=== PATIENT | male | born 1970 | race Caucasian/White ===

== ENCOUNTER 2018-11-08 11:35 | Observation (INO) | payer BC, OTHER ==
[2018-11-08 12:15] LABS: Absolute Lymphocytes (CBC) 3.4 K/uL (0.7-4.9); Absolute Monocytes 1.2 K/uL (0.1-1.3); Absolute Neutrophil 6.6 K/uL (1.8-8.0); Eosinophils % 1.7 % (0-4.4); Hematocrit 52.2 % (39.6-49.0); Lymphocytes % 29.6 % (15.3-44.8); MPV 8.7 fL (7.6-11.3); Monocytes % 10.3 % (3.3-12.3); RBC Red Blood Cell Count 5.78 M/uL (4.33-5.43)
[2018-11-08 12:18] LABS: Protime INR 0.94
[2018-11-08] MEDS ORDERED: ASPIRIN 81 MG CHEWABLE TABLET ONE (12:46)
[2018-11-08 12:50] LABS: ALT/SGPT 56 U/L (12-78); AST/SGOT 27 U/L (15-37); Albumin 4.1 g/dL (3.4-5.0); Alkaline Phosphatase 60 U/L (45-117); BUN Blood Urea Nitrogen 15 mg/dL (7-18); Bicarbonate 26 mmol/L (21-32); Bilirubin Direct 0.1 mg/dL (0-0.2); Bilirubin Total 0.4 mg/dL (0.2-1.0); Glucose Level 94 mg/dL (74-106); Magnesium 2.1 mg/dL (1.8-2.4); NT PRO-BNP 16 pg/mL (<125); Potassium 3.9 mmol/L (3.5-5.1); Protein, Total 7.5 g/dL (6.4-8.2); Sodium Level 142 mmol/L (136-145); Troponin (Emerg Dept Use Only) < 0.02 ng/mL (0.0-0.045)
--- NOTE | 2018-11-08 12:56 | RAD REPORT ---
EXAM DESCRIPTION: RAD - Chest Single View - 11/08/2018 12:50 pm CLINICAL HISTORY: CHEST PAIN Chest pain. COMPARISON: No comparisons FINDINGS: Portable technique limits examination quality. The lungs are grossly clear. The heart is normal in size. No displaced fractures. IMPRESSION: No acute intrathoracic process suspected.
[2018-11-08] MEDS ORDERED: NITROGLYCERIN 0.4 MG/TAB SL ONE (13:22)
--- NOTE | 2018-11-08 14:20 | EDPHYS ---
Physician Documentation [facility] Name: Kenn Willis Age: 48 yrs Sex: Male : 1970 Arrival Date: 11/08/2018 Time: 11:38 Bed 3 Private MD: ED Physician Anastacio Frank HPI: 11/08 12:06 This 48 yrs old Male presents to ER via Ambulatory with complaints of Chest jmm Pain. 12:06 The patient or guardian reports chest pain that is located primarily in the substernal m area. Onset: gradually, 4 day(s) ago. The pain radiates to the left arm. Associated signs and symptoms: Pertinent negatives: shortness of breath, fever. The chest pain is described as aching, a pressure. Duration: The patient or guardian reports multiple episodes, that are intermittent. This is a 48 year old male with a history of htn, hlp that presents to the ED with complaints of left sided chest pressure beginning 4 days ago which were intermittent. Patient states the pain has been constant and describes as pressure since yesterday with left arm involvement beginning today. Patient smokes cigars daily, denies recreational drug use. . 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 - Social history:: Smoking status: Patient/guardian denies using tobacco. - Ebola Screening: : Patient negative for fever greater than or equal to 101.5 degrees Fahrenheit, and additional compatible Ebola Virus Disease symptoms Patient denies exposure to infectious person Patient denies travel to an Ebola-affected area in the 21 days before illness onset No symptoms or risks identified at this time. ROS: 12:06 Constitutional: Negative for fever, chills, and weight loss. jmm 12:06 Skin: Negative for injury, rash, and discoloration, Neuro: Negative for headache, weakness, numbness, tingling, and seizure. 12:06 Cardiovascular: Positive for chest pain. 12:06 Respiratory: Negative for 12:06 MS/extremity: Positive for pain. 12:06 All other systems are negative. Exam: 12:06 Constitutional: This is a well developed, well nourished patient who is awake, alert, jmm and in no acute distress. Head/Face: atraumatic. Eyes: EOMI, no conjunctival erythema appreciated Neck: Trachea midline, Supple Chest/axilla: Normal chest wall appearance and motion. Cardiovascular: Regular rate and rhythm. No edema appreciated Respiratory: Normal respirations, no respiratory distress appreciated Abdomen/GI: Non distended, soft Back: Normal ROM Skin: General appearance color normal MS/ Extremity: Moves all extremities, no obvious deformities appreciated, no edema noted to the lower extremities Neuro: Awake and alert, normal gait Psych: Behavior is normal, Mood is normal, Patient is cooperative and pleasant 12:06 Cardiovascular: Rate: normal, Rhythm: regular, Pulses: no pulse deficits are appreciated. Vital Signs: 11:44 BP 157 / 110; Pulse 85; Resp 18; Temp 98.4; Pulse Ox 95% on R/A; Weight 106.59 kg (R); aj1 Height 6 ft. 0 in. (182.88 cm) (R); Pain 8/10; 12:30 BP 142 / 77; Pulse 86 MON; Resp 17; Pulse Ox 98% on R/A; sg 13:15 BP 129 / 100; Pulse 66; Resp 17; Pulse Ox 98% on R/A; sg 13:32 BP 125 / 99; Pulse 69; Resp 16; Pulse Ox 97% on R/A; sg 11:44 Body Mass Index 31.87 (106.59 kg, 182.88 cm) aj1 MDM: 11:54 Patient medically screened. [facility] 12:11 The patient was given aspirin in the Emergency Department. Data reviewed: vital signs, [facility] nurses notes. 14:19 Test interpretation: by ED physician or midlevel provider: ECG. Counseling: I had a [facility] detailed discussion with the patient and/or guardian regarding: the historical points, exam findings, and any diagnostic results supporting the discharge/admit diagnosis, lab results, radiology results, the need for further work-up and treatment in the hospital. ED course: I discussed the patient with Dr. Chinchilla whom accepted admission. . 11/08 12:02 Order name: Basic Metabolic Panel; Complete Time: 12:57 [facility] 11/08 12:02 Order name: CBC with Diff; Complete Time: 12:45 [facility] 11/08 12:02 Order name: LFT's; Complete Time: 12:57 [facility] 11/08 12:02 Order name: Magnesium; Complete Time: 12:57 [facility] 11/08 12:02 Order name: NT PRO-BNP; Complete Time: 12:57 [facility] 11/08 12:02 Order name: PT-INR; Complete Time: 12:45 [facility] 11/08 12:02 Order name: Troponin (emerg Dept Use Only); Complete Time: 12:57 [facility] 11/08 12:02 Order name: XRAY Chest (1 view); Complete Time: 12:59 [facility] 11/08 12:02 Order name: EKG; Complete Time: 12:03 [facility] 11/08 12:02 Order name: Cardiac monitoring; Complete Time: 12:04 [facility] 11/08 12:02 Order name: EKG - Nurse/Tech; Complete Time: 12:30 [facility] 11/08 12:02 Order name: IV Saline Lock; Complete Time: 12:04 [facility] 11/08 12:02 Order name: Labs collected and sent; Complete Time: 12:04 [facility] 11/08 12:02 Order name: O2 Per Protocol; Complete Time: 12:04 [facility] 11/08 12:02 Order name: O2 Sat Monitoring; Complete Time: 12:04 [facility] Administered Medications: 12:20 Drug: Aspirin Chewable Tablet 324 mg Route: PO; sg 13:15 Drug: Nitroglycerin 0.4 mg Route: Sublingual; sg Disposition: 11/08/18 14:20 Hospitalization ordered by Zehra Chinchilla for Observation. Preliminary diagnosis is Chest pain, unspecified. - Bed requested for Telemetry/MedSurg (observation). - Status is Observation. sg - Condition is Stable. - Problem is new. - Symptoms are unchanged. UTI on Admission? No Addendum: 11/11/2018 07:09 Co-signature as Attending Physician, Anastacio Frank MD I agree with the assessment and k dr plan of care. Signatures: Dispatcher [employer] EDMS Kamila Redd RN RN aj1 Woody, Diana, RN RN dw Gay, Steven, RN RN sg Rittger, Kevin, MD MD kdr Mickail, Joel, PA PA [facility] Corrections: (The following items were deleted from the chart) 11/08 16:50 14:20 Hospitalization Ordered by Zehra Chinchilla MD for Observation. Preliminary diagnosis dw is Chest pain, unspecified. Bed requested for Telemetry/MedSurg (observation). Status is Observation. Condition is Stable. Problem is new. Symptoms are unchanged. UTI on Admission? No. jmm 17:27 16:50 11/08/2018 14:20 Hospitalization Ordered by Zehra Chinchilla MD for Observation. sg Preliminary diagnosis is Chest pain, unspecified. Bed requested for Telemetry/MedSurg (observation). Status is Observation. Condition is Stable. Problem is new. Symptoms are unchanged. UTI on Admission? No. dw
--- NOTE | 2018-11-08 14:20 | ER ---
Nurse's Notes [facility] Name: Kenn Willis Age: 48 yrs Sex: Male : 1970 Arrival Date: 11/08/2018 Time: 11:38 Bed 3 Private MD: Diagnosis: Chest pain, unspecified Presentation: 11/08 11:42 Presenting complaint: Patient states: "I ran out of my blood pressure medicine 2 weeks aj1 ago. I got it refilled this weekend, but this week I've been having stabbing pains in my chest and an aching and today my left arm started hurting really bad." Denies SOB. Transition of care: patient was not received from another setting of care. Onset of symptoms was October 2018. Risk Assessment: Do you want to hurt yourself or someone else? Patient reports no desire to harm self or others. Initial Sepsis Screen: Does the patient meet any 2 criteria? No. Patient's initial sepsis screen is negative. Does the patient have a suspected source of infection? No. Patient's initial sepsis screen is negative. Care prior to arrival: None. 11:42 Method Of Arrival: Ambulatory aj1 11:42 Acuity: IVAN 3 aj1 Triage Assessment: 11:44 General: Appears in no apparent distress. uncomfortable, Behavior is calm, cooperative, aj1 appropriate for age. Pain: Complains of pain in anterior aspect of left upper chest Pain radiates to left arm Pain currently is 8 out of 10 on a pain scale. Neuro: Level of Consciousness is awake, alert, obeys commands. Cardiovascular: Patient's skin is warm and dry. Respiratory: Airway is patent Respiratory effort is even, unlabored, Respiratory pattern is regular, symmetrical. 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 - Social history:: Smoking status: Patient/guardian denies using tobacco. - Ebola Screening: : Patient negative for fever greater than or equal to 101.5 degrees Fahrenheit, and additional compatible Ebola Virus Disease symptoms Patient denies exposure to infectious person Patient denies travel to an Ebola-affected area in the 21 days before illness onset No symptoms or risks identified at this time. Screenin:00 Abuse screen: Denies threats or abuse. Denies injuries from another. Nutritional sg screening: No deficits noted. Tuberculosis screening: No symptoms or risk factors identified. Never had TB. Fall Risk None identified. Assessment: 12:10 General: Appears in no apparent distress. comfortable, well groomed, well developed, sg well nourished, Behavior is calm, cooperative, appropriate for age. Pain: Complains of pain in left arm and anterior aspect of left upper chest Quality of pain is described as aching. Neuro: Level of Consciousness is awake, alert, obeys commands, Oriented to person, place, time, situation, Straw Hat Brusher are equal bilaterally Speech is normal, Facial symmetry appears normal. Cardiovascular: Capillary refill is brisk in bilateral fingers Patient's skin is warm and dry. Chest pain is described as vague, quality is sharp, squeezing. Respiratory: Airway is patent Respiratory effort is even, unlabored, Respiratory pattern is regular, symmetrical. GI: No signs and/or symptoms were reported involving the gastrointestinal system. : No signs and/or symptoms were reported regarding the genitourinary system. EENT: No signs and/or symptoms were reported regarding the EENT system. Derm: Skin is pink, warm \\T\\ dry. Musculoskeletal: Circulation, motion, and sensation intact. Range of motion: intact in all extremities. 12:47 Reassessment: Patient appears in no apparent distress at this time. Patient and/or sg family updated on plan of care and expected duration. Pain level reassessed. Patient is alert, oriented x 3, equal unlabored respirations, skin warm/dry/pink. 13:30 Reassessment: Patient appears in no apparent distress at this time. Patient and/or sg family updated on plan of care and expected duration. Pain level reassessed. Patient is alert, oriented x 3, equal unlabored respirations, skin warm/dry/pink. Patient states feeling better. 14:30 Reassessment: Patient appears in no apparent distress at this time. Patient and/or sg family updated on plan of care and expected duration. Pain level reassessed. Patient is alert, oriented x 3, equal unlabored respirations, skin warm/dry/pink. pt reports Nitro 0.4 SL has decreased arm pain at this time. 15:30 Reassessment: Patient appears in no apparent distress at this time. Patient and/or sg family updated on plan of care and expected duration. Pain level reassessed. Patient is alert, oriented x 3, equal unlabored respirations, skin warm/dry/pink. 16:25 Reassessment: Patient appears in no apparent distress at this time. Patient and/or sg family updated on plan of care and expected duration. Pain level reassessed. Patient is alert, oriented x 3, equal unlabored respirations, skin warm/dry/pink. awaiting admission to the floor at this time, pt and pt fiance stated understanding, will continue to monitor. 17:20 Reassessment: pt and pt family at bedside, pt tolerating PO food from [employer], denies sg N/V/D/Fever. Vital Signs: 11:44 BP 157 / 110; Pulse 85; Resp 18; Temp 98.4; Pulse Ox 95% on R/A; Weight 106.59 kg (R); aj1 Height 6 ft. 0 in. (182.88 cm) (R); Pain 8/10; 12:30 BP 142 / 77; Pulse 86 MON; Resp 17; Pulse Ox 98% on R/A; sg 13:15 BP 129 / 100; Pulse 66; Resp 17; Pulse Ox 98% on R/A; sg 13:32 BP 125 / 99; Pulse 69; Resp 16; Pulse Ox 97% on R/A; sg 11:44 Body Mass Index 31.87 (106.59 kg, 182.88 cm) aj1 ED Course: 11:38 Patient arrived in ED. rg4 11:44 Triage completed. aj1 11:44 Arm band placed on Patient placed in an exam room. aj1 11:47 Jalen Garza PA is PHCP. [facility] 11:47 Anastacio Frank MD is Attending Physician. jm 11:48 Gary Walker, RN is Primary Nurse. sg 12:00 Initial lab(s) drawn, by ky, sent to lab. Inserted saline lock: 20 gauge in right sg wrist, using aseptic technique. Blood collected. Patient maintains SpO2 saturation greater than 95% on room air. 12:31 EKG done, by electronics engineering technologist. reviewed by Anastacio Frank MD. dt2 12:31 EKG done, by electronics engineering technologist. reviewed by Jalen KOTHARI. dt2 12:51 XRAY Chest (1 view) In Process Unspecified. EDMS 13:40 No provider procedures requiring assistance completed. Patient admitted, IV remains in sg place. intact, bleeding controlled, No redness/swelling at site. Pressure dressing applied. 13:50 Patient has correct armband on for positive identification. Bed in low position. Call sg light in reach. Side rails up X2. monitoring tech on. Pulse ox on. NIBP on. Warm blanket given. Head of bed elevated. 14:19 Zehra Chinchilla MD is Hospitalizing Provider. m Administered Medications: 12:20 Drug: Aspirin Chewable Tablet 324 mg Route: PO; sg 13:15 Drug: Nitroglycerin 0.4 mg Route: Sublingual; sg Outcome: 14:20 Decision to Hospitalize by Provider. senthil 17:19 Admitted to Tele accompanied by tech, via stretcher, room 404, with chart, Report sg called to Maritza DOOLEY 17:19 Condition: stable 17:19 Instructed on the need for admit, safety practices, Demonstrated understanding of instructions. 17:27 Patient left the ED. Signatures: Dispatcher [employer] EDMS Kamila Redd, RN RN aj1 Gary Walker RN RN sg Jalen Garza, SANIYA PA Raquel Griffith rg4 Carline Mckoy dt2
--- NOTE | 2018-11-08 16:14 | EKG ---
Test Date: 2018-11-08 Test Time: 12:13:37 Caramel Maker: ISA MEASUREMENT RESULTS: Intervals: Rate: 72 IL: 156 QRSD: 94 QT: 372 QTc: 407 [place]: P: 44 IL: 156 QRS: 86 T: 24 INTERPRETIVE STATEMENTS: Normal sinus rhythm Normal ECG Compared to ECG 04/05/2007 09:00:22 No significant changes Electronically Signed On 11-08-18 16:13:53 CIGARETTE VENDOR by Trino Jacobs
--- NOTE | 2018-11-08 18:18 | P.HP ---
Certification for Inpatient Patient admitted to: Observation With expected LOS: <2 Midnights Practitioner: I am a practitioner with admitting privileges, knowledge of patient current condition, hospital course, and medical plan of care. Services: Services provided to patient in accordance with Admission requirements found in Title 42 Section 412.3 of the Code of Federal Regulations Patient History Date of Service: 11/08/18 Primary Care Provider: Dr. Tolbert Reason for admission: Chest pain History of Present Illness: This is a 48-year-old male with history of hypertension, hyperlipidemia, psoriasis and current cigar smoker admitted for chest pain. Per patient, he has been having intermittent substernal chest pain for the past month that has been progressively worsening. Now for the past day he has been having radiation to the left arm, causing a murillo/known left arm. He is also describing 8-9/10 chest/arm pain that started on the morning of admission, the started suddenly when he was sitting and describes it as sharp. States that the pain is worse with sitting still and better with movement. Of note, patient has not taken his blood pressure medications for 2 weeks because his primary care physician was in the process of moving and could not get a hold of his Dr. He recently restarted his blood pressure medication a few days ago. He then came to the emergency room. In the emergency room, initially blood pressure was elevated. he received aspirin and nitro. At the time of my exam, patient was alert oriented x3, hemodynamically stable in no acute distress. Per patient, arm pain had resolved. He was admitted for further evaluation of his chest pain Allergies Penicillins Adverse Reaction (Verified 11/08/18 15:12) Itching/Hives/Rash Home Medications: Valsartan/Hydrochlorothiazide [Valsartan-Hctz 160-12.5 mg Tab] 1 tab PO DAILY Review of Systems 10-point ROS is otherwise unremarkable Physical Examination - Vital Signs Temperature: 98.4 F Blood Pressure: 125/99 Pulse: 69 Respirations: 16 - Physical Exam General: Alert, In no apparent distress, Oriented x3 HEENT: Atraumatic, PERRLA, Mucous membr. moist/pink, EOMI, Sclerae nonicteric Neck: Supple, 2+ carotid pulse no bruit, No LAD, Without JVD or thyroid abnormality Respiratory: Clear to auscultation bilaterally, Normal air movement Cardiovascular: Regular rate/rhythm, Normal S1 S2 Gastrointestinal: Normal bowel sounds, No tenderness Musculoskeletal: No tenderness Integumentary: No rashes Neurological: Normal gait, Normal speech, Normal strength at 5/5 x4 extr, Normal tone, Normal affect Lymphatics: No axilla or inguinal lymphadenopathy - Studies Laboratory Data (last 24 hrs) 11/08/18 12:07: PT 11.1, INR 0.94 11/08/18 12:07: WBC 11.6 H, Hgb 18.5 H, Hct 52.2 H, Plt Count 264 11/08/18 12:07: Sodium 142, Potassium 3.9, BUN 15, Creatinine 1.25, Glucose 94, Magnesium 2.1, Total Bilirubin 0.4, AST 27, ALT 56, Alkaline Phosphatase 60 Assessment and Plan - Problems (Diagnosis) (1) Chest pain Current Visit: Yes Status: Acute Qualifiers: Chest pain type: unspecified Qualified Code(s): R07.9 - Chest pain, unspecified (2) Hypertension Current Visit: Yes Status: Chronic Qualifiers: Hypertension type: essential hypertension Qualified Code(s): I10 - Essential (primary) hypertension (3) Hyperlipidemia Current Visit: Yes Status: Acute Qualifiers: Hyperlipidemia type: unspecified Qualified Code(s): E78.5 - Hyperlipidemia , unspecified (4) Psoriasis Current Visit: No Status: Chronic (5) History of colon tumor removal Current Visit: No Status: Chronic (6) Cigar smoker Current Visit: Yes Status: Chronic (7) Obesity (BMI 30.0-34.9) Current Visit: Yes Status: Chronic - Plan This is a 48-year-old male with: Chest pain (Acute) R07.9 Chest pain guidelines: Beta-shivam, valsartan (home medication), aspirin, Plavix and statin Echo ordered Stress test ordered If abnormal, will consult cardiology for further evaluation. Morphine for pain Oxygen as needed Hyperlipidemia (Acute) E78.5 Check lipid panel tomorrow. Start statin Cigar smoker (Chronic) F17.290 Will need counseling prior to discharge Hypertension (Chronic) I10 Will restart home valsartan along with the beta-shivam. Obesity (BMI 30.0-34.9) (Chronic) E66.9 History of colon tumor removal (Chronic) Psoriasis (Chronic) L40.9 DVT prophylaxis: Aspirin and Plavix GI prophylaxis: None Diet: Heart healthy, NPO after midnight Disposition: Pending cardiac evaluation and symptomatic improvement. Discharge Plan: Home Plan to discharge in: 24 Hours - Advance Directives Does patient have a Living Will: No Does patient have a Durable POA for Healthcare: No Time Spent Managing Pts Care (In Minutes): 55
[2018-11-08 18:20] VITALS: BMI 4686.6
[2018-11-08] MEDS ORDERED: MORPHINE 4 MG/ML SYR IV PRN ×2 (18:38→23:40)
[2018-11-08] MEDS ORDERED: NITROGLYCERIN 0.4 MG/TAB SL PRN (18:38)
[2018-11-08] MEDS ORDERED: ACETAMINOPHEN 500 MG TAB PO PRN (18:38)
[2018-11-08] MEDS ORDERED: ONDANSETRON 4 MG/2 ML VIAL IV PRN (18:38)
[2018-11-08] MEDS ORDERED: POTASSIUM CL SA 10 MEQ TAB PO ONE (18:40)
[2018-11-08] MEDS: NA CHLORIDE 0.9% 1,000 ML IV SCH (19:10)
[2018-11-08 20:48] LABS: Thyroid Stimulating Hormone 4.48 uIU/mL (0.360-3.740)
[2018-11-08] MEDS ORDERED: ATORVASTATIN 40 MG TAB PO SCH (21:00)
[2018-11-08] MEDS ORDERED: MORPHINE 4 MG/ML SYR IV ONE (23:39)
[2018-11-09] MEDS: NA CHLORIDE 0.9% 1,000 ML IV SCH (03:40)
[2018-11-09 05:39] LABS: Albumin 3.3 g/dL (3.4-5.0); Bilirubin Total 0.4 mg/dL (0.2-1.0); Potassium 3.7 mmol/L (3.5-5.1); Protein, Total 6.1 g/dL (6.4-8.2)
[2018-11-09] MEDS ORDERED: POTASSIUM CL SA 10 MEQ TAB PO ONE (05:50)
[2018-11-09] MEDS ORDERED: METOPROLOL TAR 25 MG TAB PO SCH (06:00)
--- NOTE | 2018-11-09 07:42 | EKG ---
Test Date: 2018-11-08 Test Time: 23:56:21 Mangle Operator Garments: RT Giles MEASUREMENT RESULTS: Intervals: Rate: 59 [place]: 156 QRSD: 98 QT: 422 QTc: 417 [place]: P: 42 NC: 156 QRS: 18 T: 8 INTERPRETIVE STATEMENTS: Sinus bradycardia Otherwise normal ECG Compared to ECG 11/08/2018 12:13:37 Sinus rhythm no longer present Electronically Signed On 11-09-18 07:41:58 PARISH NURSE by Trino Jacobs
[2018-11-09] MEDS ORDERED: CLOPIDOGREL 75 MG TABLET PO SCH (09:00)
[2018-11-09] MEDS ORDERED: ASPIRIN EC 81 MG TAB PO SCH (09:00)
[2018-11-09] MEDS ORDERED: INFLUENZA VACCINE (for 3y+) 0.5 ML DOSE IMVAC ONE (09:00)
[2018-11-09] MEDS ORDERED: VALSARTAN 40 MG TAB PO SCH (09:00)
[2018-11-09] MEDS ORDERED: VALSARTAN 80 MG TAB PO SCH (09:00)
[2018-11-09 09:04] VITALS: O2SAT 94
[2018-11-09 09:14] VITALS: TEMP 97.3
[2018-11-09 12:06] VITALS: BP 132/82
--- NOTE | 2018-11-14 10:58 | P.SSS ---
Patient History Date of Service: 11/09/18 Primary Care Provider: Dr. Tolbert Reason for admission: Chest pain History of Present Illness: This is a 48-year-old male with history of hypertension, hyperlipidemia, psoriasis and current cigar smoker admitted for chest pain. Per patient, he has been having intermittent substernal chest pain for the past month that has been progressively worsening. Now for the past day he has been having radiation to the left arm, causing a murillo/known left arm. He is also describing 8-9/10 chest/arm pain that started on the morning of admission, the started suddenly when he was sitting and describes it as sharp. States that the pain is worse with sitting still and better with movement. Of note, patient has not taken his blood pressure medications for 2 weeks because his primary care physician was in the process of moving and could not get a hold of his Dr. He recently restarted his blood pressure medication a few days ago. He then came to the emergency room. In the emergency room, initially blood pressure was elevated. he received aspirin and nitro. At the time of my exam, patient was alert oriented x3, hemodynamically stable in no acute distress. Per patient, arm pain had resolved. He was admitted for further evaluation of his chest pain Allergies Penicillins Adverse Reaction (Verified 11/08/18 15:12) Itching/Hives/Rash Home Medications: Omeprazole [Prilosec] 40 mg PO DAILY 11/08/18 Atorvastatin Calcium [Lipitor] 40 mg PO BEDTIME #30 tab 11/09/18 Clopidogrel Bisulfate [Plavix*] 75 mg PO DAILY #30 tablet 11/09/18 Metoprolol Tartrate 25 mg PO DAILY #30 tablet 11/09/18 Nitroglycerin [Nitrostat*] 0.4 mg SL UD PRN #15 tab 11/09/18 Valsartan [Diovan*] 160 mg PO DAILY #30 tab 11/09/18 - Past Medical/Surgical History Has patient received pneumonia vaccine in the past: No Diabetic: No -: High Cholesterol -: Hypertension -: Anxiety -: Psoriasis -: Colon Cancer St. 1 -: Colon Polyps/Tumor removed with Appendix removal -: Metal plates to right hand then removed - Family History Father -: Hypertension Notes: High Cholesterol; AFib Mother Notes: at 50 - Non Hodgkins Lymphoma Sister -: Hypertension Notes: High Cholesterol - Social History Smoking Status: Light Tobacco smoker (1-9 cigarettes/day) Alcohol use: Yes CD- Drugs: No Caffeine use: Yes Place of Residence: Home Review of Systems 10-point ROS is otherwise unremarkable Physical Examination - Vital Signs Temperature: 97.3 F Blood Pressure: 132/82 Pulse: 60 Respirations: 16 Pulse Ox (%): 94 - Physical Exam General: Alert, In no apparent distress, Oriented x3 HEENT: Atraumatic, PERRLA, Mucous membr. moist/pink, EOMI, Sclerae nonicteric Neck: Supple, 2+ carotid pulse no bruit, No LAD, Without JVD or thyroid abnormality Respiratory: Clear to auscultation bilaterally, Normal air movement Cardiovascular: Regular rate/rhythm, Normal S1 S2 Gastrointestinal: Normal bowel sounds, No tenderness Musculoskeletal: No tenderness Integumentary: No rashes Neurological: Normal gait, Normal speech, Normal strength at 5/5 x4 extr, Normal tone, Normal affect Lymphatics: No axilla or inguinal lymphadenopathy - Diagnosis (Problem(s)) (1) Chest pain Onset Date: 11/11/18 Status: Acute Qualifiers: Chest pain type: unspecified Qualified Code(s): R07.9 - Chest pain, unspecified (2) Hypertension Onset Date: 11/11/18 Status: Chronic Qualifiers: Hypertension type: essential hypertension Qualified Code(s): I10 - Essential (primary) hypertension (3) Hyperlipidemia Onset Date: 11/11/18 Status: Acute Qualifiers: Hyperlipidemia type: unspecified Qualified Code(s): E78.5 - Hyperlipidemia , unspecified (4) Psoriasis Onset Date: 11/11/18 Status: Chronic (5) History of colon tumor removal Onset Date: 11/11/18 Status: Chronic (6) Cigar smoker Onset Date: 11/11/18 Status: Chronic (7) Obesity (BMI 30.0-34.9) Onset Date: 11/11/18 Status: Chronic Treatment Summary: Patient was admitted for chest pain. Stress test was ordered but since it was the weekend, stress test unable to be done. Patient was asymptomatic, hemodynamically stable, AAOx3 and in no acute distress. Option given to patient for inpatient stress test sunday vs outpatient follow up with cardiology. Patient requested outpatient follow up and requested to go home. As patient was stable, discharged home, He was provided information for cardiology and recommended to followup as soon as possible. He remained stable and trops negative x 3. - Disposition Discharge Date: 11/09/18 Disposition: ROUTINE DISCHARGE Patient Discharge Instructions: Please follow up with the primary care physician in 1 week. Please follow up with cardiology in the next 1-2 weeks. Information provided to you. Please return to the emergency room for worsening symptoms Diet: AHA Activity: Ad alessia Time Spent Managing Pts Care (In Minutes): 55
== END 2018-11-09 11:31 | disposition home or self-care (01) ==
LOC: ER 11:35 → ERHOLD 14:36 → 4TH 17:23
PROVIDERS: ADMIT Family Medicine; ATTEND Family Medicine
DX: R07.9 Chest pain, unspecified (principal); I10 Essential (primary) hypertension; E78.5 Hyperlipidemia, unspecified; L40.9 Psoriasis, unspecified; Z72.0 Tobacco use; E66.9 Obesity, unspecified; Z68.30 Body mass index [BMI] 30.0-30.9, adult; Z85.038 Personal history of other malignant neoplasm of large intestine; Z88.0 Allergy status to penicillin
CPT/HCPCS: 36415; 71045; 80048; 80053; 80061; 80076; 83735; 83880; 84439; 84443; 84484; 85025; 85610; 93005; 93017; 94760; 99285; G0378; J7030

== ENCOUNTER 2024-05-09 22:19 | Emergency (ER) | payer BC, OTHER ==
[~2024-05-09 22:19] MED LIST: ETOMIDATE 20 MG/10 ML VIAL IV ONE; ROCURONIUM 50 MG/5 ML VIAL IV ONE
[2024-05-09] MEDS ORDERED: KETAMINE HCL IN 0.9 % NACL 50 MG/5 ML SYRINGE IV ONE (22:22)
--- OUTSIDE RECORDS SUMMARY | 2024-05-09 22:23 | XMS REPORT | Clinical Summary ---
Author Name Unknown Organization [facility] [place] Address [address] [place] [address] Care Team Providers Care Catering Truck Operator Name Role Phone Osbaldo Black MD Unavailable [phone] Elvin Giron MD Primary Care Provider + Estevan Whitlock MD Unavailable [phone] Allergies Active Allergy Reactions Criticality Noted Date Comments Other Anaphylaxis,Hives,Sh ortness Of Breath,Swelling High Bee stings Penicillins Anaphylaxis High Medications Medication Sig Dispensed Refills Start Date End Date Status fenofibrate (TRIGLIDE) 160 mg tablet Take 160 mg by mouth daily. 01/24/2017 Active PROAIR HFA 90 mcg/actuation inhaler Inhale 2 puffs by mouth every 6 (six) hours as needed. 0 09/08/2019 Active ENSTILAR 0.005-0.064 % foam Apply 1 application topically to affected area(s) daily. 0 08/20/2019 Active clobetasol (TEMOVATE) 0.05% ointment Apply 1 application topically to affected area(s) daily. 2 08/20/2019 Active clobetasol 0.05 % shampoo As needed 0 05/19/2019 Active triamcinolone (KENALOG) 0.1% cream Apply 1 application topically to affected area(s) daily. 0 05/19/2019 Active aspirin 81 mg EC tablet Take 81 mg by mouth. Active vitamin A 8000 units capsule Take 8,000 Units by mouth daily. Active amLODIPine (NORVASC) 5 mg tablet Take 5 mg by mouth. 11/16/2020 Activ e methocarbamol (ROBAXIN) 500 mg tablet 1-2 tablets every 6 hours prn for muscle spasms 05/31/2020 Active montelukast (SINGULAIR) 10 mg tablet 02/25/2021 Active apremilast (Otezla) 30 mg tab Take 1 tablet by mouth. Active omeprazole (PriLOSEC) 40 MG capsuleIndications :Gastro-esophageal reflux disease with esophagitis, without bleeding, not otherwise specified Take 1 capsule (40 mg) by mouth daily. 90 capsule 2 08/20/2021 Active multivitamin tab tablet Take 1 tablet by mouth. Active buPROPion (Wellbutrin XL) 150 mg 24 hr tabletIndications: Tobacco dependence syndrome Take 1 tablet (150 mg) by mouth every morning. 30 tablet 04/13/2022 Active Active Problems Problem Noted Date Diagnosed Date Right upper quadrant pain 09/15/2019 Last Assessment & Plan: Patient attributes this to fatty liver Gallbladder unremarkable on ultrasound EGD with LA grade C esophagitis and benign biopsies in the stomach and esophagus Description of recent episode makes me suspicious this is part of his IBS-C Liver function tests abnormal 09/15/2019 Last Assessment & Plan: Fatty liver changes noted on imaging with mild portal vein dilation Serologic work-up of chronic liver disease showed immunity to hepatitis A. Patient advised to seek vaccination for hepatitis B with primary care physician. No evidence of hepatitis C, autoimmune, or metabolic liver disease Advised healthy diet, exercise, weight loss Reduce or eliminate alcohol Liver elastography with 0 to mild liver fibrosis so biopsy deferred He is getting LFT monitoring with PCP, will defer to PCP AST and ALT improved from 1 year ago Recent labs at [facility] 11/24/21 NA 135 - 145 mmol/L 138 K 3.5 - 5.0 mmol/L 3.9 CL 98 - 108 mmol/L 106 CO2 TOTAL 23 - 31 mmol/L 29 AGAP 2 - 16 3 BUN 7 - 23 mg/dL 15 GLUCOSE 70 - 110 mg/dL 124High CREATININE 0.60 - 1.25 mg/dL 1.12 TOTAL BILI 0.1 - 1.1 mg/dL 1.0 CALCIUM 8.6 - 10.6 mg/dL 9.0 T PROTEIN 6.3 - 8.2 g/dL 7.0 ALBUMIN 3.5 - 5.0 g/dL 4.5 ALK PHOS 34 - 122 U/L 66 ALTv 5 - 50 U/L 52High AST(SGOT) 13 - 40 U/L 52High eGFR mL/min/1.73m2 68.8 Nausea with vomiting 09/15/2019 Overview: Added automatically from request for surgery [id number] Last Assessment & Plan: Vomiting seems induced when he overeats This may be related to the hiatal hernia? Avoid overeating See discussion regarding other issues Gastro-esophageal reflux dis ease with esophagitis, without bleeding 10/21/2017 Overview: Added automatically from request for surgery [id number] Last Assessment & Plan: Significant LA grade C esophagitis on recent EGD Increased omeprazole to 40 mg twice daily for a period and now back to once a day Good symptom control on omeprazole 40 mg daily He has some apple cider vinegar. I do not think this will be sufficient to manage his reflux symptoms given his degree of prior esophagitis Repeat EGD with esophagitis by previous EGDs, including an exam done with acid optimization, did not show Chacon's esophagus EGD in 2017 with LA grade B reflux esophagitis, follow-up EGD with some salmon-colored mucosal islands and hiatal hernia, no Chacon's esophagus changes No clear need to repeat EGD again after acid optimization since this has been done before Recommend continuing PPI RTC yearly Personal history of colonic polyp 10/03/2017 Overview: Added automatically from request for surgery [id number] Last Assessment & Plan: Colonoscopy Dr. Schaefer, extent TI, prep Excellent Hemorrhoids, diverticulosis in the sigmoid/descending/ascending/cecum, enlarged prostate Nodular ileal mucosa likely LAs, biopsied Mildly nodular mucosa in the colon, likely LAs, biopsied 4-8 mm ascending TA x3 4-8 mm transverse TA (with 1 fragment with focal high-grade dysplasia) x3 4-8 mm descending TA x1 4-8 mm sigmoid TA x1 Diminutive cecal fold x1 Diminutive ascending TA x3 Terminal ileum, biopsy: Ileal mucosa with no significant pathologic changes. Colon, descending, biopsy: Colonic mucosa with no significant pathologic changes. Colon, sigmoid, biopsy: Colonic mucosa with no significant pathologic changes. Colon, right, biopsy: Colonic mucosa with no significant pathologic changes. Repeat colonoscopy in 1 year, orders in (March 2022) Previously we discussed the large number of adenomas on this exam. Overall he has less than 20 adenomas, to date approximately 13 have been removed. Will defer referral to genetics until he has 20 or more adenomas based on current testing guidelines from our genetics team He asked about safety of starting Biologics for his psoriasis. As far as the issues we are managing including GERD, colon polyps, IBS-C I do not have any objections to starting Biologics. We did note that his neuroendocrine tumor was from 2017. I suggested he discuss with Dr. Giron's team regarding safety of Biologics in the setting of this recent cancer. Irritable bowel syndrome with constipation 08/24 Last Assessment & Plan: Abdominal pain in the past (RLQ) and recently (RUQ) appears to be consistent with IBS-C given chronicity, recurrence, worsening with changes in bowel habits, relief with bowel movements Discussed bowel regimen with him again Encouraged his use of fiber and staying hydrated Can add Colace 100 mg p.o. twice daily, MiraLAX, senna (alone or via smooth move/dieters tea) as needed Discussed newer medications briefly including Linzess. At this time he would like to stick with his current regimen. Some bright red blood which by description sounds like hemorrhoidal bleeding. He is up-to-date on his colonoscopies. 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 appendix Surgical History Surgery Date Site/Laterality Comments COLONOSCOPY 2016 HAND SURGERY 10/08/1993 - 10/07/1994 Right due to fracture AK LAPAROSCOPIC APPENDECTOMY 04/19/2017 Abdomen/N/A Procedure: SURGICAL LAPAROSCOPY WITH APPENDECTOMY; Surgeon: Elvin Giron MD; Location: MAIN OR; Service: SURG ONC - COLORECTAL AK ESOPHAGOGASTRODUODENOSCOP Y TRANSORAL DIAGNOSTIC 10/03/2017 Esophagus/N/A Procedure: DIAGNOSTIC UPPER GASTROINTESTINAL ENDOSCOPY; Surgeon: Lino Schaefer MD; Location: MAIN ENDOSCOPY; Service: GASTROENTEROLOGY AK COLONOSCOPY FLX DX W/YOLANDE J SPEC WHEN PFRMD 10/03/2017 N/A Procedure: DIAGNOSTIC FLEXIBLE COLONOSCOPY PROXIMAL TO SPLENIC FLEXURE; Surgeon: Lino Schaefer MD; Location: MAIN ENDOSCOPY; Service: GASTROENTEROLOGY AK COLONOSCOPY FLX DX W/YOLANDE J SPEC WHEN PFRMD 10/04/2017 N/A Procedure: DIAGNOSTIC FLEXIBLE COLONOSCOPY PROXIMAL TO SPLENIC FLEXURE; Surgeon: Billy Vela MD; Location: MAIN ENDOSCOPY; Service: GASTROENTEROLOGY AK ESOPHAGOGASTRODUODENOSCOP Y TRANSORAL DIAGNOSTIC 01/03/2018 Esophagus/N/A Procedure: DIAGNOSTIC UPPER GASTROINTESTINAL ENDOSCOPY; Surgeon: Lino Schaefer MD; Location: MAIN ENDOSCOPY; Service: GASTROENTEROLOGY AK ESOPHAGOGASTRODUODENOSCOP Y TRANSORAL DIAGNOSTIC 03/23/2021 Esophagus/N/A Procedure: DIAGNOSTIC UPPER GASTROINTESTINAL ENDOSCOPY; Surgeon: Lino Schaefer MD; Location: MAIN ENDOSCOPY; Service: GASTROENTEROLOGY AK COLONOSCOPY FLX DX W/YOLANDE J SPEC WHEN PFRMD 03/23/2021 N/A Procedure: DIAGNOSTIC FLEXIBLE COLONOSCOPY PROXIMAL TO SPLENIC FLEXURE; Surgeon: Lino Schaefer MD; Location: MAIN ENDOSCOPY; Service: GASTROENTEROLOGY AK COLONOSCOPY FLX DX W/YOLANDE J SPEC WHEN PFRMD 03/22/2022 N/A Procedure: DIAGNOSTIC FLEXIBLE COLONOSCOPY PROXIMAL TO SPLENIC FLEXURE; Surgeon: Lino Schaefer MD; Location: MAIN ENDOSCOPY; Service: GASTROENTEROLOGY Medical History Medical History Date Comments Hypertension Hyperlipidemia 11/2011 Migraine 2013 Pneumonia 2012 Ulcer 1988 Diverticulitis 02/2017 Irritable bowel syndrome 1996 Polyp 02/2017 Fracture 2016 Arthritis Retained metal fragments Presence of other specified device 1993 Plate and screws in right hand but removed in 1994 Anxiety 1997 Psoriasis 2012 Herpes zoster 1998 Cancer Colon cancer colon and append ix ca Family History Medical History Relation Name Comments -Melanoma Father Kenn Giles Cryreji Atrial fibrillation Father Kenn Giles Cryreji Hypertension Father Kenn Giles Cryan -Breast cancer Maternal Aunt -Lymphoma Mother Angelic Willis -Breast cancer Paternal Aunt 1 Ava Cryan Diabetes Paternal Aunt 1 Ava Cryan Diabetes Paternal Aunt 2 Shantel CHegwidden Diabetes Paternal Grandmother Shantel Cryan -Melanoma Sister Moni Ohara Hypertension Sister Moni Ohara Relation Name Status Comments Father Kenn Giles Cryreji Maternal Aunt Mother Angelic Willis Paternal Aunt 1 Ava Willis Paternal Aunt 2 Shantel Magana Paternal Grandmother Shantel Willis Sister Moni Ohara Social History Tobacco Use Types Packs/Day Years Used Date Smoking Tobacco: Every Day Cigars Started: 10/08/1992 Smokeless Tobacco: Former Quit: 10/19/1997 Tobacco Cessation:Ready to Q uit: Yes; Counseling Given: Yes Comments:1-2 cigar per day Alcohol Use Standard Drinks/Week Comments Yes 38 (1 standard drink = 0.6 oz pu re alcohol) 12 per beers week Sex and Gender Information Value Date Recorded Sex Assigned at Male 10/03/2019 8:38 PM SPORTS COORDINATOR Gender Identity Male 10/03/2019 8:38 PM SPORTS COORDINATOR Sexual Orientation Straight 10/03/2019 8: 38 PM SPORTS COORDINATOR Obstetrics History Plan of Treatment Health Maintenance Due Date Last Done Comments COVID-19 Vaccine ( season) 06/08/202311/2020 Influenza Vaccine 06/08/2024 Advance Directives * Full Code (Latest Code Status on File) Date Activated Date Inactivated Comments 04/19/2017 5:49 PM 04/20/2017 4:31 PM Care Teams Catering Truck Operator Relationship Specialty Start Date End Date Osbaldo Black MD [address] [place] [address] [place] [address] [email or web address] PCP - External Follow Up A Gastroenterology 03/08/17 Elvin Giron MD [address] [place] [address] DR. OLGUIN [address] [place] [id number] [email or web address] - General General Surgery 03/22/17 Estevan Whitlock MD [address] [place] [phone] [email or web address] Consulting Physician Hematology and Oncology 10/06/19
[2024-05-09] MEDS ORDERED: LORazepam 2 MG/ML VIAL ONE (22:44)
[2024-05-09] MEDS ORDERED: MIDAZOLAM HCL 5 ML ONE (22:55)
[2024-05-09] MEDS ORDERED: propofoL 1,000 MG/100 ML VIAL IV ONE (23:02)
[2024-05-09 23:10] LABS: Absolute Basophils 0.1 K/uL (0-0.5); Absolute Eosinophils 1.4 K/uL (0-0.5); Absolute Lymphocytes (CBC) 5.3 K/uL (0.7-4.9); Absolute Monocytes 1.6 K/uL (0.1-1.3); Absolute Neutrophil 5.6 K/uL (1.8-8.0); Eosinophils % 9.8 % (0-4.4); Hematocrit 52.2 % (39.6-49.0); Hemoglobin 17.7 g/dL (13.6-17.9); Lymphocytes % 37.7 % (15.3-44.8); MCH 31.4 pg (27.0-35.0); MCHC 33.9 g/dL (32.0-36.0); MCV 92.7 fL (80-100); MPV 8.2 fL (7.6-11.3); Monocytes % 11.1 % (3.3-12.3); Neutrophils % 40.4 % (41.7-73.7); Nucleated Red Blood Cells % 0.1 % (0-0); Platelets 271 thou/uL (152-406); RBC Red Blood Cell Count 5.63 M/uL (4.33-5.43); Red Cell Distribution Width 13.6 % (12.1-15.2)
[2024-05-09 23:19] LABS: PT Prothrombin Time 10.3 SECONDS (9.4-12.5); Protime INR 0.92
[2024-05-09 23:20] LABS: PTT, Activated Partial Thromb 33.5 SECONDS (24.3-36.9)
[2024-05-09 23:32] LABS: ALT/SGPT 47 U/L (16-61); Albumin 3.9 g/dL (3.4-5.0); Albumin/Globulin Ratio 1.1 (1.1-1.8); Alkaline Phosphatase 74 U/L (45-117); Anion Gap 9.4 mEq/L (5.0-15.0); BUN Blood Urea Nitrogen 14 mg/dL (7-18); Bicarbonate 26 mEq/L (21-32); Bilirubin Total 0.4 mg/dL (0.2-1.0); Globulin 3.4 g/dL (2.3-3.5); Glomerular Filtration Rate 60 ml/min (=/>90); Glucose Level 118 mg/dL (74-106); Protein, Total 7.3 g/dL (6.4-8.2); Sodium Level 143 mEq/L (136-145)
[2024-05-09 23:34] LABS: AST/SGOT 34 U/L (15-37); Bilirubin Direct < 0.2 mg/dL (0-0.2); Bilirubin Indirect, Calculated 0.2 mg/dL (0.2-0.8); C-Reactive Protein < 2.90 mg/L (<3.00); Potassium 3.4 mEq/L (3.5-5.1)
[2024-05-09 23:46] LABS: Barbiturates NEGATIVE (NEGATIVE); Benzodiazepines NEGATIVE (NEGATIVE); Cocaine NEGATIVE (NEGATIVE); METHAMPHETAM NEGATIVE (NEGATIVE); Methadone NEGATIVE (NEGATIVE); Opiates NEGATIVE (NEGATIVE); Phencyclidine NEGATIVE (NEGATIVE); Specific Gravity < 1.005 (1.005-1.030); Sqamous Epithelial None Seen /HPF (None Seen); THC Cannibis POSITIVE (NEGATIVE); Urine Bacteria None Seen /HPF (<20); Urine Bilirubin NEGATIVE (Negative); Urine Blood Negative (Negative); Urine Clarity Clear (Clear); Urine Color Colorless (Yellow); Urine Crystals Unidentified Few /HPF (None Seen); Urine Culture Reflex Order NOT NEEDED; Urine Glucose NEGATIVE (Negative); Urine Ketones NEGATIVE (Negative); Urine Microscopic Reflex YN ORDER UMIC; Urine Nitrite NEGATIVE (Negative); Urine Protein NEGATIVE (Negative); Urine RBC <5 /HPF (None Seen); Urine Urobilinogen Normal (Normal); Urine WBC <5 /HPF (<5)
[2024-05-10] MEDS ORDERED: NOREPINEPHRINE BITARTRATE/D5W 4 MG/250 ML KIT IV ONE (00:27)
[2024-05-10] MEDS ORDERED: NA CHLORIDE 0.9% 1,000 ML ONE ×2 (00:28→01:27)
[2024-05-10] MEDS ORDERED: ALBUMIN HUMAN 25% 200 ML IV ONE (00:53)
[2024-05-10 01:04] LABS: Arterial Blood Carboxyhemoglob 4.2 % (0-1.5); Blood Gas THB 17.9 g/dl (12-18); Blood O2 Saturation 98.1 % (92-98.5)
[2024-05-10] MEDS ORDERED: D5 0.9 NS 1,000 ML IV ONE (01:13)
--- NOTE | 2024-05-10 01:29 | EDPHYS ---
Physician Documentation [facility] Name: Kenn Willis Age: 53 yrs Sex: Male : 1970 Arrival Date: 05/09/2024 Time: 22:19 Bed 4 Private MD: ED Physician Francisco Javier Grider HPI: 05/09 23:49 This 53 yrs old Male presents to ER via Unassigned with complaints of AMS. sp4 23:49 Patient presents with EMS with altered mental status. Patient was found at home after sp4 he developed altered mental status as reported by the family. Patient complained of right shoulder pain and then he fell to the floor and curled up in a position. On arrival EMS is reported that patient attempted to fight them and EMS have administered 1 mg Ativan, and has had lucid episode during which time he apologized and he proceeded to become combative again. Patient was given total of 100 mg intramuscular ketamine and and 75 mg IV ketamine for agitation. Patient had to be restrained by EMS prior to arrival. Patient arrived in restraints strapped to the stretcher. On arrival patient is nonverbal, he is awake but agitated and ROS/HPI is not available. . Historical: - Allergies: 23:56 PENICILLINS; jj7 - PMHx: 23:56 2 cancerous tumors removed from colon; Hyperlipidemia; Hypertension; psorasis; PTSD jj7 (psorasis ); Anxiety; - PSHx: 23:56 COLON; jj7 - Immunization history:: Adult Immunizations unknown. - Infectious Disease History:: unknown. - Family history:: not pertinent. - Social history:: Smoking status: Patient reports the use of cigarette tobacco products, cigars, Patient uses alcohol, on a daily basis. patient/guardian reports chronic longstanding heavy alcohol consumption. 40 oz OF WHISKY DAILY. caffeine. ROS: 23:49 Constitutional: ROS is not available sp4 23:49 All other systems are negative, 23:49 Unable to obtain ROS due to altered mental status, Exam: 23:49 Constitutional: This is a well developed, well nourished patient , appears intoxicated sp4 on arrival, uncooperative, nonverbal, protecting his airway, appears to have periods of agitation, struggling against restraints Head/Face: Normocephalic, atraumatic. Eyes: Pupils equal round and reactive to light, ENT: Nares patent. No nasal discharge, no septal abnormalities noted. Tympanic membranes are normal and external auditory canals are clear. Oropharynx with no redness, swelling, or masses, exudates, or evidence of obstruction, uvula midline. Mucous membranes moist. Neck: Trachea midline, no thyromegaly or masses palpated, and no cervical lymphadenopathy. Supple, full range of motion without nuchal rigidity, or vertebral point tenderness. Chest/axilla: Normal chest wall appearance and motion. Nontender with no deformity. No lesions are appreciated. Cardiovascular: Regular rate and rhythm with a normal S1 and S2. No gallops, murmurs, or rubs. Normal PMI, no JVD. No pulse deficits. Respiratory: Lungs have equal breath sounds bilaterally, clear to auscultation and percussion. Tachypnea and dyspnea. But protecting his airway Abdomen/GI: Soft, with normal bowel sounds. No distension or tympany. No guarding Back: NO Deformities Male : Normal genitalia with no discharge or lesions. Skin: Warm, dry with normal turgor. Normal color with no rashes, no lesions, and no evidence of cellulitis. MS/ Extremity: Pulses equal, no cyanosis. Neurovascular intact. Full, normal range of motion. Neuro: Awake and agitated, Moves all extremities, Combative, struggling against restraints, grossly no lateralizing neurologic deficit however exam is limited Psych: Awake, agitated and combative on exam 05/10 01:54 ECG was reviewed by the Attending Physician. EKG at 0 133 prolonged QT, normal sp4 sinus rhythm rate 75 Vital Signs: 05/09 22:19 BP 196 / 124; Pulse 115; Resp 22; Pulse Ox 99% ; jj7 23:00 BP 164 / 87; Pulse 103; Resp 15; Pulse Ox 96% on R/A; cp4 23:30 BP 95 / 68; Pulse 98; Resp 18; Pulse Ox 96% on ETT vent; FiO2 50 %; cp4 05/10 00:00 BP 113 / 82; Pulse 92; Resp 14; Pulse Ox 94% on ETT vent; FiO2 50 %; cp4 00:30 BP 96 / 64; Pulse 90; Resp 14; Pulse Ox 92% on ETT vent; FiO2 50 %; cp4 00:45 BP 88 / 64; Pulse 80; Resp 14; Pulse Ox 80% on ETT vent; FiO2 50 %; cp4 00:47 Weight 100.24 kg; cp4 01:00 BP 110 / 77; Pulse 78; Resp 14; Pulse Ox 94% on ETT vent; FiO2 94 %; cp4 01:15 BP 92 / 70; Pulse 68; Resp 14; Pulse Ox 94% on ETT vent; FiO2 50 %; cp4 01:30 BP 85 / 64; Pulse 73; Resp 14; Pulse Ox 93% on ETT vent; FiO2 50 %; cp4 01:45 BP 103 / 76; Pulse 68; Resp 14; Pulse Ox 95% ; FiO2 50 %; cp4 02:00 BP 113 / 80; Pulse 56; Resp 18; Pulse Ox 96% on ETT vent; FiO2 50 %; cp4 02:15 BP 116 / 81; Pulse 57; Resp 18; Pulse Ox 97% ; FiO2 50 %; cp4 02:30 BP 118 / 83; Pulse 57; Resp 18; Pulse Ox 97% on ETT vent; FiO2 50 %; cp4 02:45 BP 126 / 85; Pulse 57; Resp 18; Pulse Ox 97% on ETT vent; FiO2 50 %; cp4 03:00 BP 123 / 83; Pulse 56; Resp 18; Pulse Ox 97% on ETT vent; FiO2 50 %; cp4 03:15 BP 119 / 86; Pulse 58; Resp 18; Pulse Ox 96% on ETT vent; FiO2 50 %; cp4 03:30 BP 117 / 82; Pulse 60; Resp 18; Pulse Ox 96% on ETT vent; FiO2 50 %; cp4 03:45 BP 116 / 88; Pulse 59; Resp 18; Temp 97.6; Pulse Ox 97% on ETT vent; FiO2 50 %; cp4 Baylis Coma Score: 05/09 23:49 Eye Response: to pain(2). Motor Response: withdraws from pain(4). Verbal Response: sp4 none(1). Total: 7. Procedures: 23:57 Intubation: Ventilated with 100% NRB prior to procedure. O2 saturation prior to sp4 procedure was 100 %. Intubated orally using S4 Blade Glyde scope intubation with 8.0 mm ETT. was successful on first attempt. Ventilated with Ambu bag. Tube secured at center of mouth measured 25 cm at lip. Placement verified by CXR, Patient tolerated well. MDM: 22:37 Patient medically screened. sp4 23:58 ED course: Patient arrives with some agitation and combative behavior. EMS reported sp4 patient has managed to put up significant fight at the scene and was delirious. Patient had to be given 200 mg IV ketamine on arrival for agitation just to move him to ER stretcher . Patient continued to struggle against restraints and was given 4 mg IV Ativan. After the decision was made to put patient on the complete sedation and to secure the airway until patient could be investigated for the sources of delirium. Patient was intubated with RSI, started on propofol and we will obtain full workup including CT head C-spine chest abdomen pelvis without contrast . . 05/10 01:21 ED course: IMPRESSION: CT CHEST: 1. No evidence of acute intrathoracic disease. 2. Mild sp4 patchy dependent bibasilar opacification likely due to atelectasis. CTABDOMEN AND PELVIS: 1. No evidence of acute intra-abdominal or intrapelvic pathology. 2. Hepatomegaly. 3. Scattered colonic diverticulosis. 4. Postsurgical changes at the base of the cecum. The appendix is not identified and is likely surgically absent. 5. Degenerative changes of the skeletal and vascular structures. Electronically signed by: Genia Townsend DO 05/10/2024 01:11 AM. ED course: CT cervical spine without intravenous contrast CLINICAL DATA: 53 years Male head injury TECHNICAL DATA: Multiple high-resolution thin axial CT images were performed through the cervical spine followed by sagittal and coronal reconstructed images. The CT study is performed according to ALARA (as low as reasonably achievable) or ALARA/IMAGE GENTLY, with automatic adjustment of mA and/or kV according to patient size. Performed on: 05/09/2024 at 11:44 PM COMPARISONS: No prior studies were available for comparison.. FINDINGS: The cervical vertebrae are normal in height. There is normal alignment of the vertebrae. There is mild disc space narrowing at C6- C7 with associated hypertrophic spurring of the vertebral endplates at this level.. Bone mineralization is normal. The atlanto-axial articulation is preserved and the odontoid process is intact. There is normal alignment of the facet joints on the parasagittal images. There are minimal degenerative changes of the facet joints. There is no evidence of acute fracture or subluxation. There is mild C6-C7 canal stenosis secondary to a disc osteophyte complex. There is mild bilateral multilevel neural foraminal stenosis secondary to uncovertebral joint and facet joint hypertrophy. The prevertebral and paraspinal soft tissues are unremarkable. The lung apices are clear. An orotracheal tube is present. The tip is not identified on this study. There is a partially imaged nasogastric tube. IMPRESSION: 1. No evidence of acute fracture involving the cervical spine. 2. Mild degenerative changes at C6-C7. . ED course: Two PROCEDURE: Head Brain Wo Cont CLINICAL HISTORY: AMS TECHNIQUE: Contiguous axial CT images obtained through the brain without IV contrast. Coronal and sagittal reformatted images were provided. This exam was performed according to our departmental dose-optimization program, which includes automated exposure control, adjustment of the mA and/or kV according to patient size and/or use of iterative reconstruction technique. COMPARISON: None available for comparison FINDINGS: Brain: . No focal mass effect. Ordoñez-white matter differentiation is within normal limits. No hemorrhage. Ventricles: No ventriculomegaly or midline shift. Extra-axial spaces: No extra-axial collection or hemorrhage. Paranasal sinuses and mastoid air cells: Well-aerated Bones: Fracture at the tip of the nasal bone of undetermined age Soft tissues: Unremarkable IMPRESSION: 1. No acute intracranial or extra-axial abnormality. 2. Fracture at the tip of the nasal bone of undetermined age. . 01:28 Differential Diagnosis altered mental status, sepsis, flu. Data reviewed: vital signs, sp4 nurses notes, EMS record, old medical records, lab test result(s), EKG, radiologic studies, CT scan, plain films. Consideration of Admission/Observation Escalation of care including admission/observation considered. Management of patient was discussed with the following: Mender Hand: ICU Attending . ED course: Patient is 53-year-old male, with reported PTSD, presents with acute agitated delirium, combative and agitated behavior, patient was given 200 mg IV ketamine on arrival he has responded within again woke up and began struggling wildly against restraints. Patient was given Ativan 4 mg IV, after that the decision was made to provide complete sedation with propofol and to secure the airway for moderate to severe agitation with combative behavior. CT head C-spine chest abdomen pelvis did not reveal any emergent findings, patient has transient drop in blood pressure likely secondary to propofol. Blood pressure has improved with albumin and IV fluids. Patient at this time requires management in ICU careful weaning from sedation and extubation . At this time course for acute encephalopathy and agitated delirium is unclear however we suspect drug intoxication. Possibly synthetic drugs. . 05/09 22:31 Order name: Acetaminophen; Complete Time: 23:48 sp4 05/09 22:31 Order name: Basic Metabolic Panel; Complete Time: 23:48 sp4 05/09 22:31 Order name: CBC with Diff; Complete Time: 23:48 sp4 05/09 22:31 Order name: ETOH Level; Complete Time: 23:48 sp4 05/09 22:31 Order name: Hepatic Function; Complete Time: 23:48 sp4 05/09 22:31 Order name: PT-INR; Complete Time: 23:48 sp4 05/09 22:31 Order name: Ptt, Activated; Complete Time: 23:48 sp4 05/09 22:31 Order name: Salicylate; Complete Time: 23:48 sp4 05/09 22:31 Order name: Urinalysis w/ reflexes; Complete Time: 23:48 sp4 05/09 22:31 Order name: Urine Drug Screen; Complete Time: 23:48 sp4 05/09 22:32 Order name: Blood Culture Adult (2) sp4 05/09 22:32 Order name: Lactate w/ 2H reflex if indic.; Complete Time: 23:48 sp4 05/09 22:32 Order name: CRP; Complete Time: 23:48 sp4 05/09 22:33 Order name: TSH; Complete Time: 01:08 sp4 05/09 22:33 Order name: T4 Free; Complete Time: 23:48 sp4 05/09 22:33 Order name: Procalcitonin; Complete Time: 01:08 sp4 05/10 01:04 Order name: ABG Arterial Blood Gas; Complete Time: 01:08 EDMS 05/09 22:32 Order name: CT Head Brain wo Cont sp4 05/09 23:17 Order name: CT Chest Abdomen Pelvis W/O Contrast sp4 05/09 23:17 Order name: CT C Spine sp4 05/10 00:54 Order name: Chest Single View XRAY sp4 05/09 22:31 Order name: EKG; Complete Time: 22:32 sp4 05/09 22:31 Order name: EKG - Nurse/Tech; Complete Time: 01:33 sp4 05/09 22:31 Order name: IV Saline Lock; Complete Time: 23:53 sp4 05/09 22:31 Order name: Labs collected and sent; Complete Time: 23:53 sp4 05/09 22:33 Order name: Rudd; Complete Time: 23:52 sp4 05/09 22:53 Order name: Intubation Setup; Complete Time: 23:52 sp4 EC:54 Rate is 75 beats/min. Rhythm is regular, Normal Sinus Rhythm. QRS [place] is Normal. [place] sp4 interval is normal. QRS interval is normal. QT interval is prolonged. No Q waves. T waves are Normal. No ST changes noted. Clinical impression: No evidence of ischemia. Interpreted by me. Reviewed by me. Administered Medications: 05/09 10:59 Drug: Etomidate IVP 20 mg IVP once Route: IVP; Site: right antecubital; cp4 05/10 01:58 Follow up: Response: No adverse reaction cp4 05/09 10:59 Drug: Rocuronium IVP 100 mg IVP once Route: IVP; Site: right antecubital; cp4 05/10 01:58 Follow up: Response: No adverse reaction cp4 05/09 15:48 Drug: Midazolam IVP or IV 5 mg IVP once Route: IVP; Site: right antecubital; cp4 05/10 01:59 Follow up: Response: No adverse reaction cp4 05/09 22:24 Drug: Ketamine IVP 200 mg IVP once Route: IVP; Site: left forearm; jj7 05/10 01:59 Follow up: Response: No adverse reaction cp4 05/09 22:31 Drug: Ativan IVP 4 mg IVP once Route: IVP; Site: left forearm; jj7 05/10 01:58 Follow up: Response: No adverse reaction cp4 05/09 23:05 Drug: Propofol IV 5 mcg/kg/min IV at calculated rate See Administration Instructions; cp4 Standard concentration 1000 mg / 100 mL; Recommended max rate 50 mcg/kg/min; Titrate 2 mcg/kg/min every 5 minutes to achieve goal (see titration policy); Goal parameter RASS score 0 to -2 Route: IV; Rate: calculated rate; Site: right antecubital; 05/10 03:42 Follow up: Response: No adverse reaction; IV Status: Infusion continued upon transfer cp4 00:47 Drug: NS 0.9% IV 1000 ml IV at 1 bolus Per protocol; 1000 mL bolus Route: IV; Rate: 1 cp4 bolus; Site: right antecubital; 01:20 Follow up: Response: No adverse reaction; IV Status: Completed infusion cp4 01:00 Drug: Albumin IVPB 25 grams 100 ml IVPB once; (Note: Albumin 25% concentration) Volume: cp4 100 ml; Route: IVPB; Site: left jugular; 01:57 Follow up: Response: No adverse reaction; IV Status: Completed infusion cp4 01:21 Drug: D5-NS IV 1000 ml IV at 125 ml/hr continuous Route: IV; Rate: 125 ml/hr; Site: cp4 left jugular; 03:43 Follow up: Response: No adverse reaction; IV Status: Infusion continued upon transfer cp4 01:31 Drug: NS 0.9% IV 1000 ml IV at 1 bolus Per protocol; 1000 mL bolus Route: IV; Rate: 1 cp4 bolus; Site: left jugular; 03:49 Follow up: Response: No adverse reaction; IV Status: Completed infusion cp4 01:57 Drug: Albumin IVPB 25 grams 100 ml IVPB once; (Note: Albumin 25% concentration) Volume: cp4 100 ml; Route: IVPB; Site: left jugular; 03:21 Follow up: Response: No adverse reaction; IV Status: Completed infusion cp4 02:11 Drug: Norepinephrine IV 0.1 mcg/kg/min IV at calculated rate See Administration cp4 Instructions; (Standard concentration 4 mg / 250 mL D5W); Recommended max rate 3 mcg/kg/min; Titrate 0.05 mcg/kg/min as often as every 5 minutes to achieve goal (see titration policy); Goal parameter MAP greater than 65 mmHg. Route: IV; Rate: calculated rate; Site: left jugular; 03:41 Follow up: Response: No adverse reaction; Blood pressure is elevated; IV Status: cp4 Infusion continued upon transfer 02:59 Not Given (Physician Discretion): Banana Bag - (ns 0.9% 1000 ml, folic acid ivpb 1 mg, cp4 [id number] mg, multivitamin1 amp) IV at calculated rate once 03:00 Not Given (Other Intervention Used): ondansetron 4 mg IVP once; over 2 minutes cp4 Disposition Summary: 05/10/24 01:28 Transfer Ordered Notes: Transfer Location: [facility] sp4 Reason: Higher level of care sp4 Condition: Stable sp4 Problem: new sp4 Symptoms: have improved sp4 Accepting Physician: D[facility] (05/10/24 04:07) cp4 Diagnosis - Acute agitated delirium, alcohol intoxication, cannabis use, acute combative sp4 behavior, acute toxic encephalopathy, agitation requiring sedation protocol Forms: - Medication Reconciliation Form sp4 - SBAR form sp4 Critical care time excluding procedures: :31 Critical care time: Bedside Care: 46 minutes, Consultation: 12 minutes, Family sp4 Intervention: 12 minutes. Total time: 70 minutes Signatures: Dispatcher [employer] Rene Darby RN RN jFrancisco Javier Hoff MD MD sp4 Leta Wilhelm cp4 Corrections: (The following items were deleted from the chart) 05/09 22:32 22:32 BLOOD CULTURE*+BA.LAB.BRZ ordered. EDMS EDMS 23:17 23:17 C Spine Wo Con+CT.RAD.BRZ ordered. EDMS EDMS 05/10 00:50 00:45 ABG Arterial Blood Gas ordered. EDMS EDMS 00:52 00:50 ABG Arterial Blood Gas ordered. EDMS EDMS 04:07 01:28 [facility] sp4 cp4
--- NOTE | 2024-05-10 01:29 | ER ---
Nurse's Notes [facility] Name: Kenn Willis Age: 53 yrs Sex: Male : 1970 Arrival Date: 05/09/2024 Time: 22:19 Bed 4 Private MD: Diagnosis: Acute agitated delirium, alcohol intoxication, cannabis use, acute combative behavior, acute toxic encephalopathy, agitation requiring sedation protocol Presentation: 05/09 22:19 Chief complaint: Spouse and/or significant other states: STATES HE WAS HAVING jj7 RIGHT SHOULDER PAIN AND STIFFNESS THAT WAS SO BAD HE WAS CRYING. THEN SHE STATES HE HAS ON THE GROUND IN A POSITION. THEN HE PASSED OUT THAT'S WHEN SHE CALLED EMS. NO SURE IF HE TOOK ANY ILLEGAL DRUGS BUT FEELS LIKE HE DID BECAUSE OF HOW HE WAS ACTING EMS states: EMS CALLED OUT TO HOME FOR SHOULDER PAIN. WHEN THEY ARRIVED PT WAS LYING PRONE ON THE FLOOR. HE BEGAN TO ARM CRAWL TOWARDS THEM AND WAS GROWLING AND SWAPPING AT THEM UNTIL NE GOT OUTSIDE. HE THAN ROARED LIKE A BEAR AND PASSED OUT. PD CALLED AND WHEN THEY ARRIVED PT WAS CALM AND ALERT. WHEN HE GOT INTO THE AMBULANCE PT BEGAN TO HAVE ANOTHER MANIC EPISODE. Coronavirus screen: At this time, the client does not indicate any symptoms associated with coronavirus-19. Ebola Screen: No symptoms or risks identified at this time. Initial Sepsis Screen: Does the patient meet any 2 criteria? HR > 90 bpm. Does the patient have a suspected source of infection? No. Patient's initial sepsis screen is negative. Risk Assessment: Do you want to hurt yourself or someone else? Unable to obtain. Onset of symptoms was May 09, 2024. Care prior to arrival: Medication(s) given: ATIVAN 1MG IV. KETAMINE 200MG IV. KETAMINE 75MG IM IV initiated. 18 GA, in the left forearm. 22:19 Method Of Arrival: EMS: [facility] j7 22:19 Acuity: IVAN 2 jj7 Triage Assessment: 22:19 General: Appears distressed, uncomfortable, Behavior is combative, uncooperative, jj7 Smells of alcohol. Neuro: Level of Consciousness is awake, confused, RESTLESS AND ALTERED. Oriented to. Historical: - Allergies: 23:56 PENICILLINS; jj7 - PMHx: 23:56 2 cancerous tumors removed from colon; Hyperlipidemia; Hypertension; psorasis; PTSD jj7 (psorasis ); Anxiety; - PSHx: 23:56 COLON; jj7 - Immunization history:: Adult Immunizations unknown. - Infectious Disease History:: unknown. - Family history:: not pertinent. - Social history:: Smoking status: Patient reports the use of cigarette tobacco products, cigars, Patient uses alcohol, on a daily basis. patient/guardian reports chronic longstanding heavy alcohol consumption. 40 oz OF WHISKY DAILY. caffeine. Screenin:19 Nutritional screening: Had unintentional weight loss of 10 pounds or more. SAID HE shasta7 TOLD HER HE HAS LOST 18LBS IN THE LAST 1 1/2 WKS. Tuberculosis screening: No symptoms or risk factors identified. 05/10 00:21 [facility] ED Fall Risk Assessment (Adult) History of falling in the last 3 months, cp4 including since admission No falls in past 3 months (0 pts) Confusion or Disorientation Yes (5 pts) Intoxicated or Sedated Yes (3 pts) Impaired Gait No (0 pts) Mobility Assist Device Used No (0 pt) Altered Elimination No (0 pt) Score/Fall Risk Level 3 or more points = High Risk Oriented to surroundings, Maintained a safe environment, Assessed \T\ reinforced patient's understanding of fall precautions, Provided non-skid footwear, Hourly rounding (assess needs \T\ fall precautionary measures) done, Used ambulatory aids as needed (educated on \T\ assisted with). Abuse screen: Denies threats or abuse. Assessment: 00:21 General: Appears distressed, Behavior is combative, restless. Neuro: Level of cp4 Consciousness is unresponsive, Oriented to none. Cardiovascular: Rhythm is sinus rhythm. Respiratory: Airway is patent. GI: No deficits noted. : No deficits noted. EENT: No deficits noted. Derm: No deficits noted. Musculoskeletal: No deficits noted. 00:38 Pain: Unable to use pain scale. cp4 00:40 Respiratory: Ventilator assessment: ET Tube: 8.0 26 at the teeth HOB > 30 degrees. cp4 01:00 Reassessment: No changes from previously documented assessment. Patient and/or family cp4 updated on plan of care and expected duration. Pain level reassessed. 02:00 Reassessment: No changes from previously documented assessment. Patient and/or family cp4 updated on plan of care and expected duration. Pain level reassessed. 03:00 Reassessment: No changes from previously documented assessment. Patient and/or family cp4 updated on plan of care and expected duration. Pain level reassessed. Vital Signs: 05/09 22:19 BP 196 / 124; Pulse 115; Resp 22; Pulse Ox 99% ; jj7 23:00 BP 164 / 87; Pulse 103; Resp 15; Pulse Ox 96% on R/A; cp4 23:30 BP 95 / 68; Pulse 98; Resp 18; Pulse Ox 96% on ETT vent; FiO2 50 %; cp4 05/10 00:00 BP 113 / 82; Pulse 92; Resp 14; Pulse Ox 94% on ETT vent; FiO2 50 %; cp4 00:30 BP 96 / 64; Pulse 90; Resp 14; Pulse Ox 92% on ETT vent; FiO2 50 %; cp4 00:45 BP 88 / 64; Pulse 80; Resp 14; Pulse Ox 80% on ETT vent; FiO2 50 %; cp4 00:47 Weight 100.24 kg; cp4 01:00 BP 110 / 77; Pulse 78; Resp 14; Pulse Ox 94% on ETT vent; FiO2 94 %; cp4 01:15 BP 92 / 70; Pulse 68; Resp 14; Pulse Ox 94% on ETT vent; FiO2 50 %; cp4 01:30 BP 85 / 64; Pulse 73; Resp 14; Pulse Ox 93% on ETT vent; FiO2 50 %; cp4 01:45 BP 103 / 76; Pulse 68; Resp 14; Pulse Ox 95% ; FiO2 50 %; cp4 02:00 BP 113 / 80; Pulse 56; Resp 18; Pulse Ox 96% on ETT vent; FiO2 50 %; cp4 02:15 BP 116 / 81; Pulse 57; Resp 18; Pulse Ox 97% ; FiO2 50 %; cp4 02:30 BP 118 / 83; Pulse 57; Resp 18; Pulse Ox 97% on ETT vent; FiO2 50 %; cp4 02:45 BP 126 / 85; Pulse 57; Resp 18; Pulse Ox 97% on ETT vent; FiO2 50 %; cp4 03:00 BP 123 / 83; Pulse 56; Resp 18; Pulse Ox 97% on ETT vent; FiO2 50 %; cp4 03:15 BP 119 / 86; Pulse 58; Resp 18; Pulse Ox 96% on ETT vent; FiO2 50 %; cp4 03:30 BP 117 / 82; Pulse 60; Resp 18; Pulse Ox 96% on ETT vent; FiO2 50 %; cp4 03:45 BP 116 / 88; Pulse 59; Resp 18; Temp 97.6; Pulse Ox 97% on ETT vent; FiO2 50 %; cp4 Criss Coma Score: 05/09 23:49 Eye Response: to pain(2). Motor Response: withdraws from pain(4). Verbal Response: sp4 none(1). Total: 7. ED Course: 22:19 Patient placed in an exam room, on a stretcher, on oxygen, on case monitor, on pulse j7 oximetry. 22:19 Bed in low position. jj7 22:22 Patient arrived in ED. vk 22:31 Francisco Javier Grider MD is Attending Physician. sp4 23:01 Assisted provider with intubation using 8.0 mm ETT via oral route. ET tube secured at cp4 26cm at the teeth. Set up intubation tray. Intubated by Francisco Javier Grider MD Placement verified by CO2 detector w/ + color change, auscultating bilateral breath sounds, CXR, Patient tolerated well. 23:17 First set of blood cultures drawn by wa. kmf 23:37 Second set of blood cultures drawn by wa. kmf 23:40 NGT: inserted 16 Fr. via left nare. verified placement of air over stomach, to cp4 intermittent suction. Patient tolerated well. 23:45 Client placed on continuous cardiac and pulse oximetry monitoring. NIBP monitoring kmf applied. vehicle monitor technician on. 23:46 Initial lab(s) drawn, by wa, sent to lab. Rudd cath inserted, using sterile technique, kmf 18 Fr., by physics technician, balloon inflated, to gravity drainage, clamped. urine specimen collected. 23:47 Urine collected: Rudd catheter specimen, clear. kmf 23:52 Procalcitonin Sent. kmf 23:56 Triage completed. jj7 05/10 00:15 CT Head Brain wo Cont In Process Unspecified. EDMS 00:15 CT Chest Abdomen Pelvis W/O Contrast In Process Unspecified. EDMS 00:15 CT C Spine In Process Unspecified. EDMS 00:21 Inserted saline lock: 18 gauge in right antecubital area, using aseptic technique. cp4 Blood collected. Flushed with 10 mL NS. 00:40 Assisted provider with central line placement. Set up central line tray. Triple lumen cp4 line placed in left internal jugular. Line placed by Francisco Javier Grider MD Placement verified by blood return, Dressed with Tegaderm, Patient tolerated well. 00:46 Leta Wilhelm is Primary Nurse. cp4 01:32 Chest Single View XRAY In Process Unspecified. EDMS 01:36 initiated transfer with [facility] spoke with Hollie. vk 01:40 EKG done, by ED staff, reviewed by Francisco Javier Grider MD. kmf 02:28 Patient was [facility] [place] [facility] [place] [id number] Alegria \T\[id number] Per Hollie at transfer center. 02:58 Arm band placed on right wrist. Patient placed in an exam room, on a stretcher. cp4 02:58 Provided Education on: Procedure Consent. cp4 02:58 Patient transferred, IV remains in place. cp4 03:15 EMS called for transport accepted by Alex. 03:50 One-on-one care X 90 minutes. cp4 Administered Medications: 05/09 10:59 Drug: Etomidate IVP 20 mg IVP once Route: IVP; Site: right antecubital; cp4 05/10 01:58 Follow up: Response: No adverse reaction cp4 05/09 10:59 Drug: Rocuronium IVP 100 mg IVP once Route: IVP; Site: right antecubital; cp4 05/10 01:58 Follow up: Response: No adverse reaction cp4 05/09 15:48 Drug: Midazolam IVP or IV 5 mg IVP once Route: IVP; Site: right antecubital; cp4 05/10 01:59 Follow up: Response: No adverse reaction cp4 05/09 22:24 Drug: Ketamine IVP 200 mg IVP once Route: IVP; Site: left forearm; jj7 05/10 01:59 Follow up: Response: No adverse reaction cp4 05/09 22:31 Drug: Ativan IVP 4 mg IVP once Route: IVP; Site: left forearm; jj7 05/10 01:58 Follow up: Response: No adverse reaction cp4 05/09 23:05 Drug: Propofol IV 5 mcg/kg/min IV at calculated rate See Administration Instructions; cp4 Standard concentration 1000 mg / 100 mL; Recommended max rate 50 mcg/kg/min; Titrate 2 mcg/kg/min every 5 minutes to achieve goal (see titration policy); Goal parameter RASS score 0 to -2 Route: IV; Rate: calculated rate; Site: right antecubital; 05/10 03:42 Follow up: Response: No adverse reaction; IV Status: Infusion continued upon transfer cp4 00:47 Drug: NS 0.9% IV 1000 ml IV at 1 bolus Per protocol; 1000 mL bolus Route: IV; Rate: 1 cp4 bolus; Site: right antecubital; 01:20 Follow up: Response: No adverse reaction; IV Status: Completed infusion cp4 01:00 Drug: Albumin IVPB 25 grams 100 ml IVPB once; (Note: Albumin 25% concentration) Volume: cp4 100 ml; Route: IVPB; Site: left jugular; 01:57 Follow up: Response: No adverse reaction; IV Status: Completed infusion cp4 01:21 Drug: D5-NS IV 1000 ml IV at 125 ml/hr continuous Route: IV; Rate: 125 ml/hr; Site: cp4 left jugular; 03:43 Follow up: Response: No adverse reaction; IV Status: Infusion continued upon transfer cp4 01:31 Drug: NS 0.9% IV 1000 ml IV at 1 bolus Per protocol; 1000 mL bolus Route: IV; Rate: 1 cp4 bolus; Site: left jugular; 03:49 Follow up: Response: No adverse reaction; IV Status: Completed infusion cp4 01:57 Drug: Albumin IVPB 25 grams 100 ml IVPB once; (Note: Albumin 25% concentration) Volume: cp4 100 ml; Route: IVPB; Site: left jugular; 03:21 Follow up: Response: No adverse reaction; IV Status: Completed infusion cp4 02:11 Drug: Norepinephrine IV 0.1 mcg/kg/min IV at calculated rate See Administration cp4 Instructions; (Standard concentration 4 mg / 250 mL D5W); Recommended max rate 3 mcg/kg/min; Titrate 0.05 mcg/kg/min as often as every 5 minutes to achieve goal (see titration policy); Goal parameter MAP greater than 65 mmHg. Route: IV; Rate: calculated rate; Site: left jugular; 03:41 Follow up: Response: No adverse reaction; Blood pressure is elevated; IV Status: cp4 Infusion continued upon transfer 02:59 Not Given (Physician Discretion): Banana Bag - (ns 0.9% 1000 ml, folic acid ivpb 1 mg, cp4 [id number] mg, multivitamin1 amp) IV at calculated rate once 03:00 Not Given (Other Intervention Used): ondansetron 4 mg IVP once; over 2 minutes cp4 Medication: 00:21 VIS not applicable for this client. cp4 Output: 03:51 Urine: 650ml (Rudd); Total: 650ml. cp4 Outcome: 01:28 ER care complete, transfer ordered by . sp4 02:58 Transferred by ground EMS to [facility], Transfer form completed. cp4 X-rays sent w/ patient. 02:58 Condition: stable 02:58 Instructed on the need for transfer, 04:07 Patient left the ED. cp4 Signatures: Dispatcher [employer] EDRene Desai RN RN jj7 Francisco Javier Grider MD MD sp4 Potter, Christina cp4 Yenifer Mortensen Corrie Hobbs Corrections: (The following items were deleted from the chart) 08 23:47 23:46 NGT: inserted Patient tolerated well. [facility] patti 05/10 00:38 00:21 Pain: Denies pain. cp4 cp4 00:40 00:21 Assisted provider with intubation using 8.0 mm ETT via oral route. ET tube cp4 secured at 26cm at the teeth. Set up intubation tray. Intubated by Francisco Javier Grider MD Placement verified by CO2 detector w/ + color change, auscultating bilateral breath sounds, CXR, Patient tolerated well. cp4 00:41 00:21 Respiratory: No deficits noted. cp4 cp4
[2024-05-10] MEDS ORDERED: propofoL 1,000 MG/100 ML VIAL IV ONE ×2 (03:45→03:47)
[2024-05-10 09:14] VITALS: BP 116/88; TEMP 97.6; O2SAT 97
--- NOTE | 2024-05-10 18:45 | RAD REPORT ---
EXAM DESCRIPTION: XR Chest 1 View 05/10/2024 at 1: 19 AM CLINICAL HISTORY: Central line placement left IJ, Chest pain , Endotracheal Tube COMPARISON: CT chest 05/09/2024 TECHNIQUE: Chest 1 view AP portable FINDINGS: Trachea midline. Heart size and pulmonary vessels within normal limits. Lungs clear without evidence of consolidation, mass, or significant pulmonary edema. No significant pleural effusion or pneumothorax. Thoracic spine degenerative disease. ETT tip in expected location of distal trachea. NGT courses towards left upper abdomen with tip not imaged. Left internal jugular CVC tip overlies RA superior aspect. IMPRESSION: 1. No radiographic evidence of acute chest disease. 2. Medical support devices in place. Electronically signed by: Nick Cifuentes MD 05/10/2024 01:49 AM CDT Due to temporary technical issues with the PACS/Fluency reporting system, reports are being signed by the in house radiologists without review as a courtesy to insure prompt reporting. The interpreting radiologist is fully responsible for the content of the report.
--- NOTE | 2024-05-10 18:50 | RAD REPORT ---
EXAM DESCRIPTION: Head Brain Wo Cont CLINICAL HISTORY: AMS TECHNIQUE: Contiguous axial CT images obtained through the brain without IV contrast. Coronal and sa gittal reformatted images were provided. This exam was performed according to our departmental dose-optimization program, which includes autom ated exposure control, adjustment of the mA and/or kV according to patient size and/or use of iterati ve reconstruction technique. COMPARISON: None available for comparison FINDINGS: Brain: . No focal mass effect. Ordoñez-white matter differentiation is within normal limits. No hemorrhage. Ventricles: No ventriculomegaly or midline shift. Extra-axial spaces: No extra-axial collection or hemorrhage. Paranasal sinuses and mastoid air cells: Well-aerated Bones: Fracture at the tip of the nasal bone of undetermined age Soft tissues: Unremarkable IMPRESSION: 1. No acute intracranial or extra-axial abnormality. 2. Fracture at the tip of the nasal bone of undetermined age. Electronically signed by: Reji Willingham MD 05/10/2024 12:48 AM CDT RP Due to temporary technical issues with the PACS/Fluency reporting system, reports are being signed by the in house radiologists without review as a courtesy to insure prompt reporting. The interpreting radiologist is fully responsible for the content of the report.
--- NOTE | 2024-05-10 19:20 | RAD REPORT ---
EXAM DESCRIPTION: CT cervical spine without intravenous contrast CLINICAL HISTORY: 53 years Male head injury TECHNIQUE: Multiple high-resolution thin axial CT images were performed through the cervical spine f ollowed by sagittal and coronal reconstructed images. The CT study is performed according to ALARA (a s low as reasonably achievable) or ALARA/IMAGE GENTLY, with automatic adjustment of mA and/or kV acco rding to patient size. Performed on: 05/09/2024 at 11:44 PM COMPARISON: No prior studies were available for comparison.. FINDINGS: The cervical vertebrae are normal in height. There is normal alignment of the vertebrae. T here is mild disc space narrowing at C6-C7 with associated hypertrophic spurring of the vertebral end plates at this level.. Bone mineralization is normal. The atlanto-axial articulation is preserved and the odontoid process is intact. There is normal alignment of the facet joints on the parasagittal images. There are minimal degenerat brisa changes of the facet joints. There is no evidence of acute fracture or subluxation. There is mild C6-C7 canal stenosis secondary t o a disc osteophyte complex. There is mild bilateral multilevel neural foraminal stenosis secondary to uncovertebral joint and facet joint hypertrophy. The prevertebral and paraspinal soft tissues are unremarkable. The lung apices are clear. An orotrach eal tube is present. The tip is not identified on this study. There is a partially imaged nasogastric tube. IMPRESSION: 1. No evidence of acute fracture involving the cervical spine. 2. Mild degenerative changes at C6-C7. Electronically signed by: Genia Townsend DO 05/10/2024 12:58 AM CDT Due to temporary technical issues with the PACS/Fluency reporting system, reports are being signed by the in house radiologists without review as a courtesy to insure prompt reporting. The interpreting radiologist is fully responsible for the content of the report.
--- NOTE | 2024-05-10 19:24 | RAD REPORT ---
EXAM DESCRIPTION: 1. CT scan of the CHEST without intravenous contrast. 2. CT scan of the ABDOMEN AND PELVIS without intravenous contrast CLINICAL HISTORY: 53 years Male agitation. TECHNIQUE: CT imaging of the chest, abdomen and pelvis without intravenous contrast administration. Sagittal and coronal reconstructed images were performed. The CT study is performed according to ALAR A (as low as reasonably achievable) or ALARA/IMAGE GENTLY, with automatic adjustment of mA and/or kV according to patient size. Performed on: 05/10/2024 at 12:08 AM COMPARISON: No prior studies were available for comparison. FINDINGS: CHEST: Lungs: The lungs are well expanded. There is mild patchy dependent bibasilar opacification likely due to atelectasis. No definite pleural effusions are identified. There is no pneumothorax. An endotrach eal tube is present which terminates above the shreyas. Heart: The heart is normal in size. There is no pericardial effusion. Mediastinum: The mediastinum is unremarkable. The mediastinal vessels are normal in caliber and con tour. Bones: No acute osseous abnormalities are identified. There is prominent degenerative spurring along the vertebral endplates in the mid to lower thoracic spine. Soft tissues: No focal soft tissue abnormalities are identified. Lymphadenopathy: No pathologic hilar, mediastinal or axillary lymphadenopathy is identified. ABDOMEN/PELVIS: Liver: The liver measures approximately 20 cm in craniocaudal dimension. No focal hepatic abnormaliti es are identified. Liver attenuation is within normal limits. Spleen: The spleen is normal in size, configuration and attenuation. Gallbladder and bile duct: The gallbladder is well distended and unremarkable. There is no biliary ductal dilatation. Pancreas: The pancreas is grossly normal in size and configuration. Adrenal Glands: The adrenal glands are normal in size and configuration. Kidneys: The kidneys are normal in size and configuration. There is no evidence of hydronephrosis. Th ere is no evidence of nephrolithiasis. There are a few benign appearing sharply marginated hypodense renal mass lesions likely representing incidental renal cysts. No follow-up imaging is recommended. Stomach: The stomach is grossly normal. There is no definite hiatal hernia. A feeding tube extends in to the stomach. Bowel: The bowel gas pattern is non specific and non obstructive. There is scattered colonic divertic ulosis. There are postsurgical changes at the base of the cecum. Appendix: The appendix is not identified and is likely surgically absent. Free air: There is no evidence of free air. Free fluid: There is no evidence of free fluid. Vasculature: The aorta is normal in caliber and contour. The inferior vena cava is grossly unremarkab le. There are mild atherosclerotic calcifications along the abdominal aorta. Lymphadenopathy: No pathologic lymphadenopathy is identified. Bladder: The bladder is decompressed due to the presence of a Rudd catheter. Reproductive: The prostate gland is grossly within normal limits. Bones: No acute osseous abnormalities are identified. There are mild degenerative changes of the lumb ar spine most pronounced at L4-L5 and L5-S1. Soft tissues: No focal soft tissue abnormalities are identified. IMPRESSION: CT CHEST: 1. No evidence of acute intrathoracic disease. 2. Mild patchy dependent bibasilar opacification likely due to atelectasis. CT ABDOMEN AND PELVIS: 1. No evidence of acute intra-abdominal or intrapelvic pathology. 2. Hepatomegaly. 3. Scattered colonic diverticulosis. 4. Postsurgical changes at the base of the cecum. The appendix is not identified and is likely surg ically absent. 5. Degenerative changes of the skeletal and vascular structures. Electronically signed by: Genia Townsend DO 05/10/2024 01:11 AM [facility] Due to temporary technical issues with the PACS/Fluency reporting system, reports are being signed by the in house radiologists without review as a courtesy to insure prompt reporting. The interpreting radiologist is fully responsible for the content of the report.
--- NOTE | 2024-05-12 17:04 | EKG ---
Test Date: 2024-05-10 Test Time: 01:33:14 Video Editor: ANGE MEASUREMENT RESULTS: Intervals: Rate: 75 CO: 162 QRSD: 98 QT: 442 QTc: 493 Kiester: P: 53 CO: 162 QRS: 43 T: 36 INTERPRETIVE STATEMENTS: Normal sinus rhythm Prolonged QT Abnormal ECG Compared to ECG 11/08/2018 23:56:21 Prolonged QT interval now present Sinus bradycardia no longer present Electronically Signed On 05-12-24 16:58:57 CDT by Jacob Mathis
== END 2024-05-10 04:07 | disposition short-term general hospital (02) ==
LOC: ER 22:19
DX: R41.0 Disorientation, unspecified (principal); F10.129 Alcohol abuse with intoxication, unspecified; F12.90 Cannabis use, unspecified, uncomplicated; G92.9 Unspecified toxic encephalopathy; R45.6 Violent behavior
CPT/HCPCS: 87040 ×2; 85025; 81001; 80048; 36415; 85610; 80076; 83605; 85730; 84443; 84439; 84145; 80307; 86140; 70450; 71250; 72125; 74176; 71045; 82805; 80143; 80179; 82077; 36600; 94002; 31500; J2704 ×3; J2250; P9047; J7042; J7030 ×2; 51702; 93005; 99291; 99292